=== PATIENT | male | born 1995 | race Two or more races ===

== ENCOUNTER → 2022-03-04 14:04 | Outpatient (BNVA) | payer OTHER, SELFPAY | PROVIDERS: PCP Nurse Practitioner Family; Visit Provider Surgery | DX: N50.89 Other specified disorders of the male genital organs (principal) | CPT/HCPCS: 99202 ==

== ENCOUNTER 2022-06-24 14:07 | Outpatient (REF) | payer OTHER, SELFPAY ==
--- NOTE | ~2022-06-24 | US_ITS ---
EXAMINATION: US SCROTUM CLINICAL INFORMATION: Other specified disorders of the male genital organs. COMPARISON: None TECHNIQUE: A sonogram of the scrotum was performed assessing hutchison-scale appearance and color Doppler flow. Spectral Doppler analysis of the arterial and venous flow were performed in the testes bilaterally. FINDINGS: RIGHT: Right testicle measures 5.4 x 2.5 x 3.0 cm, volume 21.4 mL. No focal testicular parenchymal lesions are visualized. Spectral Doppler analysis of the arterial and venous flow is normal in the right testis. Right epididymal head is normal in size. Subcentimeter epididymal cyst. No right hydrocele or varicocele is seen. Right epididymal Doppler flow is normal. LEFT: Left testicle measures 4.6 x 2.5 x 3.8 cm, volume 22.7 mL. No focal testicular parenchymal lesions are visualized. Spectral Doppler analysis of the arterial and venous flow is normal in the left testis. Left epididymal head is normal in size. Subcentimeter epididymal cyst. No left hydrocele is seen. Small left varicocele. Left epididymal Doppler flow is normal. ADDITIONAL FINDINGS: Fat-containing hernia superior to the left testicle. US/US scrotum IMPRESSION: 1. Fat-containing hernia superior to the left testicle. 2. Small left varicocele.
== END 2022-06-24 14:08 | disposition home or self-care (01) ==
LOC: HO.US 14:07
PROVIDERS: Visit Provider Surgery
DX: N50.89 Other specified disorders of the male genital organs (principal)
CPT/HCPCS: 76870

== ENCOUNTER → 2022-07-01 13:41 | Outpatient (BNVA) | payer OTHER, SELFPAY | PROVIDERS: PCP Nurse Practitioner Family; Visit Provider Surgery | DX: Z01.818 Encounter for other preprocedural examination (principal); K40.90 Unilateral inguinal hernia, without obstruction or gangrene, not specified as recurrent | CPT/HCPCS: 99212 ==

== ENCOUNTER 2022-07-30 08:35 | Day surgery (SDC) | payer OTHER, SELFPAY ==
--- NOTE | 2022-07-29 09:42 | HO.ANESPROP2 ---
Documented by User: Sarah Barrientos NP 07/29/22 09:42 HPI - Anesthesia Eval Consult details Narrative: 27yo M for Left Hernia Repair Inguinal with mesh PMFSH Active Problems Active Problems: All Active Problems (Updated 07/01/22 @ 14:10 by Kevin Gaona MD) Left inguinal hernia (Acute) Scrotal fullness (Acute) Social History Social History (Updated 07/30/22 @ 14:35 by Paulina Nevarez MD) Alcohol intake: current Alcohol intake frequency: other Patient Tobacco Use Status: Never used Tobacco Substance Use Type: Marijuana Last Used Substance: Days (ago) Meds Allergies Allergy/AdvReac Type Severity Reaction Status Date / Time aspirin AdvReac Severe Swelling Verified 07/01/22 14:07 Exam Exam Date and Time: July 29, [id number] Assessment and Plan Assessment Anesthesia Assessment: Chart Reviewed Documented by User: Paulina eNvarez MD 07/30/22 14:36 PMFSH Family History Family history of problems with anesthesia: No Surgical History History of Problems with Anesthesia: No Social History Social History (Updated 07/30/22 @ 14:35 by Paulina Nevarez MD) Alcohol intake: current Alcohol intake frequency: other Patient Tobacco Use Status: Never used Tobacco Substance Use Type: Marijuana Last Used Substance: Days (ago) Meds Allergies Allergy/AdvReac Type Severity Reaction Status Date / Time aspirin AdvReac Severe Swelling Verified 07/01/22 14:07 Exam Height,Weight and Vital Signs: Height 5 ft 6 in Weight 58.117 kg Vital Signs Temp Pulse Resp BP Pulse Ox O2 Del Method 07/30/22 09:11 98.2 F 65 16 111/78 97 Room Air Airway Loose/Missing/Broken Teeth: Yes (Back top 1 missing) Heart: RRR Lungs: CTAB Assessment and Plan Assessment Anesthesia Assessment: Anesthesia Plan Discussed Final Anesthetic Review Family History of Problems with Anesthesia: No History of Problems with Anesthesia: No NPO: Yes ASA Class: II Final Preanesthetic Review: No Changes in Pt Med Stat, Meds/Allgs Chart Reviewed, Consent Obtained/Reviewed and Anes Risks/Benef Reviewed Patient Risk: Low Procedure Risk: Low Assessment/Block/Sedation in SS: Assess/Block/Sedation-SS Anesthetic Plan Anesthetic Plan: GA Disposition: Standard PACU Documented by User: Tara Szymanski MD 07/30/22 10:46 [facility] Social History Social History (Updated 07/30/22 @ 14:35 by Paulina Nevarez MD) Alcohol intake: current Alcohol intake frequency: other Patient Tobacco Use Status: Never used Tobacco Substance Use Type: Marijuana Last Used Substance: Days (ago) Meds Allergies Allergy/AdvReac Type Severity Reaction Status Date / Time aspirin AdvReac Severe Swelling Verified 07/01/22 14:07 Exam Airway Mallampati Class: II TM Dist: >3cm Neck ROM: Full Heart: rr Lungs: cta
[2022-07-30 09:07] VITALS: BMI 20.7
[2022-07-30 09:11] VITALS: BP 111/78; PULSE 65; RESP 16; TEMP 36.8; O2SAT 97
[2022-07-30] MEDS: Lactated Ringers 1,000 ML 100 ML IVCONT (09:31)
--- NOTE | 2022-07-30 10:35 | MHC.SHP ---
Pre-Procedural Eval Section A Date of Service: 07/30/22 The patient is an INPATIENT: No The History & Physical has been completed within 30 days and I have reviewed it.: Yes Section B Chief Complaint: Unilateral inguinal hernia, without obstruction Allergies: Allergies Allergy/AdvReac Type Severity Reaction Status Date / Time aspirin AdvReac Severe Swelling Verified 07/01/22 14:07 Plan I have reviewed the history and physical and performed a pertinent physical examination on my patient. No changes have occurred unless specified.
--- NOTE | 2022-07-30 10:38 | P.OP_ITS ---
Operative Note Operative Note Date of Service: 07/30/22 Narrative: Preop diagnosis: [LEFT inguinal hernia] Postop diagnosis: [same, indirect] Procedure: [Open left inguinal hernia repair with mesh] Surgeon: Kevin Gaona MD Assist: [] Anesthesia: [general via LMA] Estimated blood loss: [3cc] Specimen: [hernia sace] Intraoperative findings: [A large left indirect scrotal hernia containing viable omentum was reduced, the hernia sac highly ligated and a tension-free Licht[place]st ein repair performed] Indications: [The patient is a 27-year-old [place]-speaking gentleman who is seen with the help of the large animal veterinarian in the office and immediately preoperatively confirming that he has a LEFT INGUINAL HERNIA. Ultrasound to exclude testicular mass was performed and consistent with left inguinal hernia. The options of continued observation versus repair with the inherent risks of bleeding, infection, hernia recurrence, mesh complications that could require another operation or removed, urinary retention and activity restrictions were all reviewed with the patient and apparently understood. Patient seemed understand his options, declined a 2nd opinion wanted to proceed.] Procedure: [The patient was seen in preoperative holding with the help of an large animal veterinarian for provided by the hospital and he confirmed no interval change to his health history. He confirmed the operative site and was marked by me in the left groin. The patient had is inguinal hair clipped, was brought into the operating room, placed supine on the table induced in general anesthesia via LMA performed. His abdomen was then widely prepped and draped using ChloraPrep. An appropriate time-out was performed and a left ileoinguinal nerve block was performed using 0.5% bupivacaine with epi. Next, standard left inguinal hernia repair incision was made sharply and carried through Robert's fascia to the external oblique. Next, the external oblique was infiltrated with additional local and opened sharply that direction of its fibers through the external ring. The left spermatic cord was circumferentially dissected using a Lacie and surrounded with a quarter-inch [place]. The ilioinguinal nerve was identified and sacrificed given its location and risk of postoperative pain. Careful di ssection of the spermatic cord to preserve the vessels and vas was performed to assess for indirect hernia sac. The scrotal hernia required opening of the sac and demonstration of the omentum which was carefully reduced in through the internal ring, then the hernia sac was carefully dissected from the spermatic cord structures taking care to preserve them and suture ligation of the hernia sac was performed. Next, the floor was imbricated using a 2-0 Polysorb and a standard Julio tension-free herniorrhaphy performed using polypropylene patch that was sutured to the pubic tubercle and inguinal ligament using a 2-0 Polysorb. A new internal ring was made using 2-0 polypropylene suture. The new internal ring was snug enough that it could just accommodate a tip of a hemostat. Next, the operative field was inspected for hemostasis which was good, the external oblique aponeurosis was closed with a running 0 Polysorb suture, subcutaneous tissues closed with 3-0 Polysorb and skin closed with running 4-0 Monocryl subcuticular suture. The abdomen was washed and dried, Mastisol and Steri-Strips applied followed by a sterile dressing. Patient tolerated the procedure well was sent to the recovery area in stable condition. All sponge and instrument counts were correct x2. At the patient's request, I spoke to Krissy regarding the procedure. Instructions regarding activity and pain management were reviewed. Her questions were answered.]
[2022-07-30 12:19] VITALS: BP 137/89; PULSE 76; RESP 18; TEMP 36.3; O2SAT 99
[2022-07-30 12:24] VITALS: BP 139/86; PULSE 74; RESP 18; O2SAT 100
[2022-07-30 12:29] VITALS: BP 144/92; PULSE 73; RESP 18; O2SAT 100
[2022-07-30 12:34] VITALS: BP 121/86; PULSE 81; RESP 18; O2SAT 100
[2022-07-30] MEDS: ondansetron HCL 4 MG/2 ML VIAL IVPUSH (12:35)
[2022-07-30 12:49] VITALS: BP 126/83; PULSE 69; RESP 18; TEMP 37.1; O2SAT 100
== END 2022-07-30 14:27 | disposition home or self-care (01) ==
PROVIDERS: PCP Nurse Practitioner Family; Visit Provider Surgery
PROC: (CPT 49505; principal; 2022-07-30 10:20)
DX: K40.90 Unilateral inguinal hernia, without obstruction or gangrene, not specified as recurrent (principal); Z88.6 Allergy status to analgesic agent
CPT/HCPCS: 49505; 88302; C1781; J0690; J1100; J2250; J2405; J2550; J3010